=== PATIENT | female | born 1960 ===

== ENCOUNTER 2016-10-17 14:16 | Inpatient (IN) | payer MEDICARE, MEDICAID ==
[2016-10-17] MEDS ORDERED: Albuterol-Ipratrop 3 mg / 0.5 (3 ml) UD ONE ×2 (14:28→16:23)
[2016-10-17] MEDS ORDERED: Albuterol-Ipratrop 3 mg / 0.5 (3 ml) UD INH STA ×2 (14:29→15:57)
[2016-10-17] MEDS ORDERED: Albuterol 0.083% Inhal Sol (2.5 mg/3 mL) UD IH STA ×3 (15:57→18:01)
[2016-10-17] MEDS ORDERED: Albuterol 0.083% Inhal Sol (2.5 mg/3 mL) UD ONE ×2 (16:23→18:28)
[2016-10-17 16:25] LABS: BASO % 0.3 % (0.0-2.0); EOS # 0.1 K/uL (0.0-0.7); EOS % 0.6 % (0.0-4.0); HEMOGLOBIN 12.4 g/dL (11.0-16.0); LYMPH # 1.4 K/uL (1.0-4.3); LYMPH % 8.7 % (20.0-40.0); MEAN CORPUSCULAR HEMOGLOBIN 29.8 pg (27.0-31.0); MEAN CORPUSCULAR HGB CONC 32.8 g/dL (33.0-37.0); MEAN PLATELET VOLUME 6.8 fL (7.2-11.7); MONO # 0.6 K/uL (0.0-0.8); MONO % 3.9 % (0.0-10.0); NEUT # 13.6 K/uL (1.8-7.0); NEUT % 86.5 % (50.0-75.0); PLATELET COUNT 211 K/uL (130-400); RBC 4.16 Mil/uL (3.80-5.20); RED CELL DISTRIBUTION WIDTH 16.3 % (11.5-14.5); WHITE BLOOD COUNT 15.8 K/uL (4.8-10.8)
[2016-10-17 16:41] LABS: ALBUMIN 3.6 g/dL (3.5-5.0)
[2016-10-17 16:44] LABS: ALB/GLOB RATIO 1.2 (1.0-2.1); AST/SGOT 19 U/L (14-36); GFR AFRICAN-AMERICAN > 60; GFR NON-AFRICAN AMERICAN > 60
[2016-10-17 16:45] LABS: ALT/SGPT 37 U/L (9-52); BLOOD UREA NITROGEN 16 mg/dL (7-17); CALCIUM 8.6 mg/dl (8.6-10.4)
--- NOTE | 2016-10-17 16:57 | RAD ---
PROCEDURE: CHEST RADIOGRAPH, 1 VIEW HISTORY: SOB COMPARISON: TheNone available. FINDINGS: LUNGS: Patchy opacity seen in the right lower lobe which may represent lower lobe atelectasis and or infiltrate. Suspect minor left basilar atelectasis. The interstitial markings are also slightly increased; rule out concomitant sequela of reactive/inflammatory airway disease or viral illness. PLEURA: No pneumothorax or pleural fluid seen. CARDIOVASCULAR: Heart size is upper limits of normal. OSSEOUS STRUCTURES: No significant abnormalities. VISUALIZED UPPER ABDOMEN: Normal. OTHER FINDINGS: None. IMPRESSION: Right lower lobe atelectasis and or infiltrate. Suspect minor left basilar atelectasis.The interstitial markings are also slightly increased; rule out concomitant sequela of reactive/inflammatory airway disease or viral illness.
[2016-10-17] MEDS ORDERED: cefTRIAXone IV 1 gm in Dextros 50 ML IV STA (18:01)
[2016-10-17] MEDS ORDERED: Azithromycin 500 MG in Sodium Chloride 0.9% 250 ML IVPB STA (18:01)
--- NOTE | 2016-10-17 18:07 | C.PDOC ---
History Of Present Illness 56-year-old female presents to the emergency department with complaints of productive cough with yellow sputum, chills, shortness of breath, pleuritic chest pain, and wheezing x3 days. Two weeks ago, patient states she was diagnosed with pneumonia at another hospital (name of antibiotics unknown). Patient denies abdominal pain, nausea/vomiting/diarrhea. Time Seen by Provider: 10/17/16 15:05 Chief Complaint (Nursing): Shortness Of Breath History Per: Patient History/Exam Limitations: no limitations Onset/Duration Of Symptoms: Days Current Symptoms Are (Timing): Still Present Current Respiratory Medications: See Home Med List Severity: Mild Past Medical History Reviewed: Historical Data, Nursing Documentation, Vital Signs Vital Signs: Last Vital Signs Temp 98.0 F 10/19/16 08:10 Pulse 97 H 10/19/16 16:33 Resp 18 10/19/16 08:10 BP 160/72 H 10/19/16 09:12 Pulse Ox 96 10/19/16 16:33 - Medical History PMH: Anxiety, Bipolar Disorder, Pneumonia, Post Traumatic Stress Disorder Surgical History: Cholecystectomy Family History: States: No Known Family Hx - Social History Hx Alcohol Use: No Hx Substance Use: No - Immunization History Hx Tetanus Toxoid Vaccination: No Hx Influenza Vaccination: Yes (04/2016) Hx Pneumococcal Vaccination: Yes (04/2016) Review Of Systems Except As Marked, All Systems Reviewed And Found Negative. Constitutional: Negative for: Fever, Chills Cardiovascular: Positive for: Chest Pain Respiratory: Positive for: Cough, Shortness of Breath, Sputum Gastrointestinal: Negative for: Nausea, Vomiting Musculoskeletal: Negative for: Back Pain Skin: Negative for: Rash Physical Exam - Physical Exam Appears: Well, Non-toxic, No Acute Distress, Other (Speaking in full sentences) Skin: Warm, Dry, No Rash Eye(s): bilateral: Normal Inspection Oral Mucosa: Moist Cardiovascular: Rhythm Regular Respiratory: No Rales, No Rhonchi, Wheezing (B/L, expiratory) Gastrointestinal/Abdominal: Normal Exam, Bowel Sounds, Soft, No Tenderness Extremity: Normal ROM, No Pedal Edema Neurological/Psych: Oriented x3 ED Course And Treatment - Laboratory Results Result Diagrams: 10/19/16 06:37 10/19/16 06:37 ECG: Interpreted By Me, Viewed By Me (NSR 71 bpm, normal axis, no acute ST/T wave changes) O2 Sat by Pulse Oximetry: 96 (ra) Pulse Ox Interpretation: Normal - Radiology CXR: Interpreted by Me, Viewed By Me (right lower lobe infiltrate) Progress Note: Blood work, CXR, EKG, and UA ordered and reviewed. Patient given nebulizer treatments and IV solumedrol. CXR shows RLL infiltrate, IV rocephin and azithromycin for pneumonia. Patient will need admission for pneumonia, failure of prior antibiotics. Reevaluation Time: 17:50 Reassessment Condition: Improved (Patient reassessed, is still having mild expiratory wheezing B/L.) - Physician Consult Information Physician Contacted: Nancy Vee Outcome Of Conversation: Discussed patient with Dr. Vee, agrees with admission for asthma exacerbation, pneumonia, failure of outpatient/prior treatment. Critical Care Time - Critical Care Note Total Time (in mins): 40 Documented critical care: time excludes all time spent performing seperately billable procedures. Disposition - Disposition Disposition: HOSPITALIZED Disposition Time: 18:05 Condition: STABLE - Clinical Impression Clinical Impression: Asthma exacerbation, Failure of outpatient treatment, Pneumonia, Dyspnea - Scribe Statement The provider has reviewed the documentation as recorded by the Scribe (Katheryn Spain) All medical record entries made by the Scribe were at my direction and personally dictated by me. I have reviewed the chart and agree that the record accurately reflects my personal performance of the history, physical exam, medical decision making, and the department course for this patient. I have also personally directed, reviewed, and agree with the discharge instructions and disposition. Decision To Admit - Pt Status Changed To: Hospital Disposition Of: Inpatient - Admit Certification Admit to Inpatient:: After my assessment, the patient will require hospitalization for at least two midnights. This is because of the severity of symptoms shown, intensity of services needed, and/or the medical risk in this patient being treated as an outpatient. - InPatient: Physician Admission Certification: I certify that this patient requires 2 or more midnights of care for the following reason:: see notes - . Bed Request Type: Telemetry Admitting Physician: Nancy Vee Patient Diagnosis: Asthma exacerbation, Pneumonia, Dyspnea, Failure of outpatient treatment
[2016-10-17 18:17] LABS: B-TYPE NATRIURETIC PEPTIDE 127 pg/mL (0-900); CK-MB 0.66 ng/mL (0.0-3.38)
[2016-10-17 18:31] LABS: BANDS 4 % (0-2); HYPOCHROMIC SLIGHT; LYMPHOCYTE 6 % (20-40); MICROCYTOSIS SLIGHT; MONOCYTE 6 % (0-10); NEUTROPHIL 84 % (50-75); PLATELET ESTIMATE NORMAL (NORMAL); TOTAL CELLS COUNTED 100
[2016-10-17 18:32] LABS: LARGE PLATELETS PRESENT; OVALOCYTES SLIGHT; SCHISTOCYTES SLIGHT
[2016-10-17] MEDS ORDERED: cefTRIAXone IV 1 gm in Dextros 50 ML IVPB ONE (18:44)
[2016-10-17] MEDS ORDERED: Oxycodone/Acetaminophen 5/325 mg Tab PO PRN (22:04)
[2016-10-17] MEDS: Albuterol 0.083% Inhal Sol (2.5 mg/3 mL) UD IH SCH (22:30)
[2016-10-18] MEDS: Albuterol 0.083% Inhal Sol (2.5 mg/3 mL) UD IH SCH ×9 (00:10→19:35)
[2016-10-18] MEDS: MethylPREDNISolone 40 mg Vial IVP SCH ×5 (00:14→23:41)
--- NOTE | 2016-10-18 07:17 | CP.PCM.PN ---
Subjective - Date & Time of Evaluation Date of Evaluation: 10/18/16 Time of Evaluation: 10:49 - Subjective Subjective: PGY 2 Medicine Note- Dr. Hawley's service CC: productive cough with yellow sputum HPI: In brief, patient is a 56 year old female who presented with productive cough for approx 3 days duration. Patient was treated for pneumonia two weeks prior at another facility but states that her symptoms did not completely resolve. Patient admits to wheezing, and pleuritic chest pain associated with coughs as well. Patient was using nebulizers and did not comply with all questions at the time of initial assessment. Driller'S Offsider attempted a second time, and patient still was unable to answer questions asked. This is therefore a limited summary of patient's history of present illness. PMHx- HTN, DM, COPD, PTSD, PSHx- Cholecystectomy Fam Hx- Patient did not answer at this time. Meds- Patient did not answer at this time. Social Hx- has smoked daily for 42 years ( patient quit yesterday); Did not answer whether she drinks or uses illicit agents. Allergies- denies Objective - Vital Signs/Intake and Output Vital Signs (last 24 hours): Temp Pulse Resp BP Pulse Ox 98.4 F 85 20 137/67 95 10/17/16 23:30 10/18/16 01:00 10/17/16 23:30 10/17/16 23:30 10/17/16 23:30 Intake and Output: 10/18/16 10/18/16 06:59 18:59 Intake Total 734 Balance 734 - Medications Medications: Current Medications Albuterol Sulfate (Albuterol 0.083% Inhal Adriane (2.5 Mg/3 Ml) Ud) 2.5 mg IH Q2 [facility] Last Admin: 10/18/16 06:03 Dose: 2.5 mg Alprazolam (Xanax) 0.5 mg PO HS [facility] Last Admin: 10/17/16 22:31 Dose: 0.5 mg Alprazolam (Xanax) 1 mg PO DAILY [facility] Home Med (Risperdal) 10 mg PO BID [facility] Ceftriaxone Sodium 1 gm/ (Sodium Chloride) 100 mls @ 100 mls/hr IVPB DAILY [facility] Azithromycin 500 mg/ Sodium (Chloride) 250 mls @ 250 mls/hr IVPB DAILY [facility] Loratadine (Claritin) 10 mg PO HS [facility] Last Admin: 10/17/16 22:31 Dose: 10 mg Methylprednisolone (Solu-Medrol) 40 mg IVP Q6H [facility] Last Admin: 10/18/16 05:12 Dose: 40 mg Oxycodone/Acetaminophen (Percocet 5/325 Mg Tab) 1 tab PO Q6H PRN PRN Reason: Pain, severe (8-10) Stop: 10/20/16 22:05 Pregabalin (Lyrica) 75 mg PO BID [facility] Sertraline HCl (Zoloft) 100 mg PO DAILY [facility] Zolpidem Tartrate (Ambien) 5 mg PO [facility] Last Admin: 10/17/16 22:31 Dose: 5 mg - Constitutional Appears: Non-toxic, No Acute Distress - Head Exam Head Exam: ATRAUMATIC, NORMAL INSPECTION - Eye Exam Eye Exam: EOMI, Normal appearance, PERRL Pupil Exam: NORMAL ACCOMODATION, PERRL - ENT Exam ENT Exam: Mucous Membranes Moist - Neck Exam Neck Exam: Full ROM - Respiratory Exam Respiratory Exam: Decreased Breath Sounds, Rales, Wheezes. absent: Stridor - Cardiovascular Exam Cardiovascular Exam: REGULAR RHYTHM, +S1, +S2 - GI/Abdominal Exam GI & Abdominal Exam: Soft, Normal Bowel Sounds - Extremities Exam Extremities Exam: Full ROM, Normal Capillary Refill - Neurological Exam Neurological Exam: Awake, Oriented x3 - Psychiatric Exam Psychiatric exam: Flat Affect, Normal Affect, Normal Mood - Skin Skin Exam: Dry, Warm Assessment and Plan (1) Pulmonary consolidation due to pneumococcal pneumonia Assessment & Plan: Azithromycin, Ceftriaxone Initial CXR- patchy opacities in RLL; reactive vs inflammatory disease; refer to complete report. F/U Chest CT results F/U Legionella, mycoplasma Status: Acute (2) COPD (chronic obstructive pulmonary disease) Assessment & Plan: Duonebs, Spiriva, advair Status: Chronic (3) Hypertension Assessment & Plan: Will need to confirm home meds when patient is willing to answer questions. Will start Zestril 5 mg PO daily Status: Chronic (4) Diabetes mellitus Assessment & Plan: ISS- Monitor Accuchecks Check Hgb A1c Status: Chronic (5) Anxiety Assessment & Plan: Xanax on board Status: Acute (6) Tobacco use disorder Assessment & Plan: Nicotine patch Smoking cessation counseling Status: Chronic (7) Prophylactic measure Assessment & Plan: SCDs GI prophylaxis not indicated at this time. Status: Acute - Assessment and Plan (Free Text) Assessment: All management and orders per Dr. Hawley
[2016-10-18] MEDS ORDERED: RISPERIDONE PO SCH (10:00)
[2016-10-18] MEDS: Azithromycin 500 MG in Sodium Chloride 0.9% 250 ML IVPB SCH (11:29)
[2016-10-18 14:03] LABS: BASO % 0.1 % (0.0-2.0); HEMOGLOBIN 12.2 g/dL (11.0-16.0); LYMPH # 0.6 K/uL (1.0-4.3); LYMPH % 6.2 % (20.0-40.0); MEAN CELL VOLUME 92.2 fL (81.0-99.0); MEAN CORPUSCULAR HGB CONC 32.5 g/dL (33.0-37.0); MEAN PLATELET VOLUME 7.4 fL (7.2-11.7); MONO # 0.3 K/uL (0.0-0.8); MONO % 3.3 % (0.0-10.0); NEUT # 9.3 K/uL (1.8-7.0); NEUT % 90.4 % (50.0-75.0); PLATELET COUNT 201 K/uL (130-400); RBC 4.06 Mil/uL (3.80-5.20); RED CELL DISTRIBUTION WIDTH 16.3 % (11.5-14.5); WHITE BLOOD COUNT 10.3 K/uL (4.8-10.8)
[2016-10-18 14:09] LABS: ALBUMIN 3.4 g/dL (3.5-5.0)
[2016-10-18 14:12] LABS: ALB/GLOB RATIO 1.1 (1.0-2.1); AST/SGOT 16 U/L (14-36); BLOOD UREA NITROGEN 19 mg/dL (7-17); GFR AFRICAN-AMERICAN > 60; GFR NON-AFRICAN AMERICAN > 60
[2016-10-18 14:13] LABS: ALT/SGPT 29 U/L (9-52); CALCIUM 8.7 mg/dl (8.6-10.4); MAGNESIUM 1.8 mg/dL (1.6-2.3)
[2016-10-18 14:41] LABS: LYMPHOCYTE 3 % (20-40); MONOCYTE 1 % (0-10); NEUTROPHIL 96 % (50-75); PLATELET ESTIMATE NORMAL (NORMAL); TOTAL CELLS COUNTED 100
--- NOTE | 2016-10-18 16:28 | CT ---
PROCEDURE: CT Chest without contrast HISTORY: pneumonia COMPARISON: Chest radiograph dated 10/18/2011. TECHNIQUE: Contiguous axial images were obtained through the chest without intravenous contrast enhancement. Sagittal and coronal reconstructions were performed. Radiation dose (DLP): 358 mGy-cm. This CT exam was performed using one or more of the following dose reduction techniques: Automated exposure control, adjustment of the mA and/or kV according to patient size, and/or use of iterative reconstruction technique. FINDINGS: LUNGS: This alveolar infiltrate pneumothorax or central air rate lesion appreciated throughout the exam. Limited ground-glass opacity is identified at the right upper lobe and right middle lobe and possibly the right lower lobe near the base with left lower lobe minimally affected. The findings may reflect limited interstitial pulmonary disease with no definite alveolitis appreciated this time. Is difficult excluded tiny faint nodule at the right apex image 21 series 3 measuring 4 mm. No associated calcification is appreciated. No additional parenchymal nodular densities identified bilaterally. MEDIASTINUM: A minimally atherosclerotic thoracic aorta is identified. No aneurysm. Normal sized heart. Main pulmonary artery unremarkable. No vascular congestion. No lymphadenopathy. PLEURA: No pleural fluid. No pneumothorax. BONES: Limited multilevel thoracic spondylosis encountered. UPPER ABDOMEN: Grossly unremarkable. OTHER FINDINGS: None. IMPRESSION: 1. Limited multifocal ground-glass opacity at the bilateral lower lobes, right middle and upper lobes may indicate an element interstitial pulmonary disease. No alveolitis pleural or pericardial effusion or significant lymphadenopathy. 2. 4 mm nodule is questioned at the right pulmonary apex as discussed above for which follow-up chest is advised in 12 months to demonstrate stability or a resolution of this finding.
[2016-10-18] MEDS: (Novolog) Insulin Aspart, Recombinant 100 u/ml 10 ml vial SC SCH ×2 (17:21→21:45)
[2016-10-18] MEDS: Fluticasone-Salmeterol 250-50mcg Diskus INH SCH (19:35)
[2016-10-19] MEDS: Albuterol 0.083% Inhal Sol (2.5 mg/3 mL) UD IH SCH ×8 (00:33→13:15)
[2016-10-19] MEDS: MethylPREDNISolone 40 mg Vial IVP SCH ×2 (05:49→12:03)
[2016-10-19 06:59] LABS: BASO % 0.1 % (0.0-2.0); HEMOGLOBIN 12.6 g/dL (11.0-16.0); LYMPH # 2.2 K/uL (1.0-4.3); LYMPH % 15.8 % (20.0-40.0); MEAN CELL VOLUME 91.5 fL (81.0-99.0); MEAN CORPUSCULAR HEMOGLOBIN 29.7 pg (27.0-31.0); MEAN CORPUSCULAR HGB CONC 32.5 g/dL (33.0-37.0); MEAN PLATELET VOLUME 7.1 fL (7.2-11.7); MONO # 0.9 K/uL (0.0-0.8); MONO % 6.3 % (0.0-10.0); NEUT # 10.9 K/uL (1.8-7.0); NEUT % 77.8 % (50.0-75.0); RBC 4.24 Mil/uL (3.80-5.20); RED CELL DISTRIBUTION WIDTH 16.3 % (11.5-14.5)
[2016-10-19 07:06] LABS: ALBUMIN 3.5 g/dL (3.5-5.0)
[2016-10-19 07:09] LABS: ALB/GLOB RATIO 1.2 (1.0-2.1); AST/SGOT 15 U/L (14-36); BLOOD UREA NITROGEN 17 mg/dL (7-17); GFR AFRICAN-AMERICAN > 60; GFR NON-AFRICAN AMERICAN > 60
[2016-10-19 07:10] LABS: ALT/SGPT 31 U/L (9-52); CALCIUM 9.1 mg/dl (8.6-10.4); MAGNESIUM 1.9 mg/dL (1.6-2.3)
[2016-10-19] MEDS ORDERED: Tiotropium 18 mcg Cap For Inhalation INH SCH (08:00)
[2016-10-19] MEDS ORDERED: Acetaminophen-Codeine 300/30 mg Tab PO PRN (08:03)
[2016-10-19] MEDS: Fluticasone-Salmeterol 250-50mcg Diskus INH SCH (08:13)
[2016-10-19 08:18] VITALS: RESP 18; TEMP 98
[2016-10-19] MEDS: (Novolog) Insulin Aspart, Recombinant 100 u/ml 10 ml vial SC SCH ×2 (08:27→12:02)
[2016-10-19 09:12] VITALS: BP 160/72
--- NOTE | 2016-10-19 09:37 | CP.PCM.PN ---
Subjective - Date & Time of Evaluation Date of Evaluation: 10/19/16 Time of Evaluation: 07:30 - Subjective Subjective: PGY3 Medicine Note - Dr. Hawley's service: Patient seen and examined at bedside this AM. Patient reports reproducible left sided chest pain radiating to right shoulder worse with deep breaths and cough. This pain started 4 days ago per patient. Patient reports cough productive of yellow phlegm. Patient denies fever, chills, nausea, vomiting, diarrhea, constipation. Patient reports she is ready to quit smoking and will do it. Objective - Vital Signs/Intake and Output Vital Signs (last 24 hours): Temp Pulse Resp BP Pulse Ox 98.0 F 81 18 160/72 H 100 10/19/16 08:10 10/19/16 08:10 10/19/16 08:10 10/19/16 09:12 10/19/16 08:10 - Medications Medications: Current Medications Acetaminophen/Codeine Phosphate (Tylenol/Codeine 300 Mg/30 Mg) 1 ea PO Q4 PRN PRN Reason: Pain, moderate (4-7) Albuterol Sulfate (Albuterol 0.083% Inhal Adriane (2.5 Mg/3 Ml) Ud) 2.5 mg IH RQ2 [facility] Last Admin: 10/19/16 07:27 Dose: 2.5 mg Alprazolam (Xanax) 0.5 mg PO HS [facility] Last Admin: 10/18/16 21:02 Dose: 0.5 mg Alprazolam (Xanax) 1 mg PO DAILY [facility] Last Admin: 10/18/16 10:00 Dose: 1 mg Ceftriaxone Sodium 1 gm/ (Sodium Chloride) 100 mls @ 100 mls/hr IVPB DAILY [facility] Last Admin: 10/19/16 09:13 Dose: 100 mls/hr Azithromycin 500 mg/ Sodium (Chloride) 250 mls @ 250 mls/hr IVPB DAILY [facility] Last Admin: 10/18/16 11:29 Dose: 250 mls/hr Insulin Aspart (Novolog) 0 unit SC ACHS [facility] PRN Reason: Protocol Last Admin: 10/19/16 08:27 Dose: 4 unit Lisinopril (Zestril) 5 mg PO DAILY [facility] Last Admin: 10/19/16 09:21 Dose: 5 mg Loratadine (Claritin) 10 mg PO HS [facility] Last Admin: 10/18/16 21:02 Dose: 10 mg Methylprednisolone (Solu-Medrol) 40 mg IVP Q6H [facility] Last Admin: 10/19/16 05:49 Dose: 40 mg Nicotine (Nicoderm Cq) 1 patch TD DAILY [facility] Last Admin: 10/18/16 20:52 Dose: 1 patch Oxycodone/Acetaminophen (Percocet 5/325 Mg Tab) 1 tab PO Q6H PRN PRN Reason: Pain, severe (8-10) Stop: 10/20/16 22:05 Last Admin: 10/19/16 08:30 Dose: 1 tab Pregabalin (Lyrica) 75 mg PO BID [facility] Last Admin: 10/18/16 17:20 Dose: 75 mg Fluticasone/Salmeterol (Advair Diskus 250/50) 1 puff INH RQ12 [facility] Last Admin: 10/19/16 08:13 Dose: 1 puff Sertraline HCl (Zoloft) 100 mg PO DAILY [facility] Last Admin: 10/18/16 10:01 Dose: 100 mg Tiotropium [place] (Spiriva) 18 mcg INH RQ24 [facility] Last Admin: 10/19/16 08:13 Dose: 18 mcg Zolpidem Tartrate (Ambien) 5 mg PO HS [facility] Last Admin: 10/18/16 21:02 Dose: 5 mg - Labs Labs: 10/19/16 06:37 10/19/16 06:37 - Constitutional Appears: Non-toxic, No Acute Distress - Head Exam Head Exam: NORMAL INSPECTION - Eye Exam Eye Exam: EOMI - ENT Exam ENT Exam: Mucous Membranes Moist - Respiratory Exam Respiratory Exam: Decreased Breath Sounds, Rhonchi. absent: NORMAL BREATHING PATTERN - Cardiovascular Exam Cardiovascular Exam: REGULAR RHYTHM, +S1, +S2. absent: Gallop, Rubs, Murmur - GI/Abdominal Exam GI & Abdominal Exam: Soft, Normal Bowel Sounds. absent: Tenderness - Extremities Exam Extremities Exam: absent: Pedal Edema - Neurological Exam Neurological Exam: Alert, Awake, Oriented x3 - Psychiatric Exam Psychiatric exam: Normal Affect, Normal Mood - Skin Skin Exam: Normal Color, Warm Assessment and Plan - Assessment and Plan (Free Text) Assessment: (1) Pulmonary consolidation due to pneumococcal pneumonia Assessment & Plan: Azithromycin, Ceftriaxone in hospital D/C with Z pack Initial CXR- patchy opacities in RLL; reactive vs inflammatory disease; refer to complete report. Chest CT - multifocal ground glass opacity at b/l lower lobes, right middle and upper lobes. Possibly interstitial pulmonary disease. 4mm nodule in right apex. F/U Chest CT in 12 months. Mycoplasma negative F/U Legionella outpatient Status: Acute (2) COPD (chronic obstructive pulmonary disease) Assessment & Plan: Duonebs, Spiriva, advair, solumedrol in hospital Takes Breo at home D/C with Spiriva and Prednisone script. Status: Chronic (3) Hypertension Assessment & Plan: 10/18: Will need to confirm home meds when patient is willing to answer questions. Will start Zestril 5 mg PO daily 10/19: Patient does not know of HTN med D/C with script for Zestril Status: Chronic (4) Diabetes mellitus Assessment & Plan: ISS- Monitor Accuchecks HgbA1C 7.2 Continue home med Status: Chronic (5) Anxiety Assessment & Plan: Xanax on board Status: Acute (6) Tobacco use disorder Assessment & Plan: Nicotine patch - script given on D/C Smoking cessation counseling Status: Chronic (7) Prophylactic measure Assessment & Plan: SCDs GI prophylaxis not indicated at this time. Status: Acute Discharge home with plan to follow up in [address] Hawley Patient to be discharged home per Dr. Hawley. Patient counselled to quit smoking. Patient should continue all home medications including but not limited to Breo inhaler. Patient should take all new medications as directed below. Patient should make an appointment and follow up with Dr. Hawley within one week. Patient should return to ED immediately if symptoms return or worsen. Patient must get a CT scan in 12 months or 1 year to follow up a 4mm nodule seen in the right apex of her lung. New medications: Spiriva 18mcg inhale once a day #1 inhaler #30 caps Prednisone 10mg by mouth daily #14 Z pack - take as directed on packaging #1 pack Tylenol #3 (with codeine) by mouth every 4 hours as needed for pain #10 Zestril 5mg by mouth daily #30 Nicotine 14mg/24hr transdermal patch daily #14
[2016-10-19] MEDS: Azithromycin 500 MG in Sodium Chloride 0.9% 250 ML IVPB SCH (10:40)
--- NOTE | 2016-10-19 12:24 | PCM.PSYCH ---
Initial Psychiatric Evaluation - Initial Psychiatric Evaluation Type of Admission: Voluntary Legal Status: Capacity Chief Complaint (in patient's own words): 'I am having a panic attack' History of Present Illness and Precipitating Events: Patient is a 56-year-old female who was brought to the ER for shortness of breath, chills, and fever. We were consulted because she was feeling that she had a panic attack. Patient is a poor historian. She states that she cannot sleep. She is paranoid and states that people are following her, and that everyone is not doing right things. She states that she has always been an angry person and has a history of 5-6 psychiatric hospitalizations for trying to kill people. She denies any hallucinations. She reports irritable mood but denies any suicidal ideations, homicidal ideations, and any previous suicide attempts. She states that she last saw a psychiatrist in [place], [place] 5 days ago. She reports having a history of PTSD, and mood swings. Current Medications: Active Medications Generic Name Dose Route Start Last Admin Trade Name Freq PRN Reason Stop Dose Admin Acetaminophen/Codeine Phosphate 1 ea 10/19/16 08:03 Tylenol/Codeine 300 Mg/30 Mg PO Q4 PRN Pain, moderate (4-7) Albuterol Sulfate 2.5 mg 10/18/16 18:00 10/19/16 10:13 Albuterol 0.083% Inhal Adriane (2.5 Mg/3 Ml) Ud IH 2.5 mg RQ2 [facility] Administration Alprazolam 0.5 mg 10/17/16 22:15 10/18/16 21:02 Xanax PO 0.5 mg HS [facility] Administration Alprazolam 1 mg 10/18/16 10:00 10/19/16 09:39 Xanax PO 1 mg DAILY [facility] Administration Ceftriaxone Sodium 1 gm/ 100 mls @ 100 mls/hr 10/18/16 10:00 10/19/16 09:13 Sodium Chloride IVPB 100 mls/hr DAILY [facility] Administration Azithromycin 500 mg/ Sodium 250 mls @ 250 mls/hr 10/18/16 10:00 10/19/16 10: 40 Chloride IVPB 250 mls/hr DAILY [facility] Administration Insulin Aspart 0 unit 10/18/16 16:30 10/19/16 12:02 Novolog SC 8 unit ACHS [facility] Administration Protocol Lisinopril 5 mg 10/19/16 10:00 10/19/16 09:21 Zestril PO 5 mg DAILY [facility] Administration Loratadine 10 mg 10/17/16 22:15 10/18/16 21:02 Claritin PO 10 mg HS [facility] Administration Methylprednisolone 40 mg 10/18/16 00:00 10/19/16 12:03 Solu-Medrol IVP 40 mg Q6H [facility] Administration Nicotine 1 patch 10/18/16 16:30 10/19/16 09:40 Nicoderm Cq TD 1 patch DAILY [facility] Administration Oxycodone/Acetaminophen 1 tab 10/17/16 22:04 10/19/16 08:30 Percocet 5/325 Mg Tab PO 10/20/16 22:05 1 tab Q6H PRN Administration Pain, severe (8-10) Pregabalin 75 mg 10/18/16 10:00 10/19/16 09:39 Lyrica PO 75 mg BID [facility] Administration Fluticasone/Salmeterol 1 puff 10/18/16 20:00 10/19/16 08:13 Advair Diskus 250/50 INH 1 puff RQ12 [facility] Administration Sertraline HCl 100 mg 10/18/16 10:00 10/19/16 09:39 Zoloft PO 100 mg DAILY [facility] Administration Tiotropium [place] 18 mcg 10/19/16 08:00 10/19/16 08:13 Spiriva INH 18 mcg RQ24 [facility] Administration Zolpidem Tartrate 5 mg 10/17/16 22:11 10/18/16 21:02 Ambien PO 5 mg HS [facility] Administration Past Psychiatric History - Past Psychiatric History Previous Treatment History: Inpatient Pertinent Medical Hx (Current Medical&Sleep Prob, Allergies): Allergies Allergy/AdvReac Type Severity Reaction Status Date / Time No Known Allergies Allergy Verified 10/17/16 14:24 Alprazolam [Xanax] 0.5 mg PO HS 10/17/16 Ambien 10 mg PO HS 10/17/16 Cetirizine HCl 10 mg PO HS 10/17/16 Ibuprofen 200 mg PO TID PRN 10/17/16 Pregabalin [Lyrica] 75 mg PO BID 10/17/16 Risperdal 10 mg PO BID 10/17/16 Sertraline [Zoloft] 100 mg PO DAILY 10/17/16 Xanax 1 mg PO DAILY 10/17/16 Acetaminophen/Codeine [Tylenol/Codeine 300 MG/30 MG] 1 ea PO Q4 PRN #10 tab Azithromycin [Z-Johan] 250 mg PO DAILY #6 tab 10/19/16 Lisinopril [Zestril] 5 mg PO DAILY #30 tab 10/19/16 Nicotine 14 mg/24 hr [Nicoderm CQ] 1 patch TD DAILY #14 patch 10/19/16 Prednisone [Nadege] 10 mg PO DAILY 14 Days 10/19/16 Tiotropium [place] Inhaler [Spiriva Inhalation Handihaler Device] 1 inhaler INH ONCE #1 inhaler 10/19/16 Tiotropium [Spiriva] 18 mcg INH RQ24 #30 cap 10/19/16 Review of Systems - Review of Systems All systems: reviewed and no additional remarkable complaints except - Psychiatric Psychiatric: Anxiety, Irritability, Paranoia Mental Status Examination - Personal Presentation Personal Presentation: Looks stated age - Affect Affect: Constricted - Motor Activity Motor Activity: Calm - Reliability in Providing Information Reliability in Providing Information: Good - Speech Speech: Organized - Mood Mood: Depressed, Anxious - Formal Thought Process Formal Thought Process: Hallucinations, Delusions, Paranoia - Obsessions/Compulsions Obsessions: No Compulsions: No - Cognitive Functions Orientation: Person, Place Sensorium: Alert Attention/Concentration: Attentive Abstract Thinking: [place] Estimate of Intelligence: Below average Judgement: Imparied, as evidence by: Poor judgement, Intact, as evidence by: Insight regarding need for hospitalization - Risk Risk: Diminished functioning DSM 5 DX - DSM 5 DSM 5 Diagnosis: Bipolar disorder mixed with psychotic features - Recommended/Plan of Treatment Treatment Recommendations and Plan of Treatment: Bipolar disorder mixed with psychotic features CBT Psychoeducation Supportive therapy, group therapy, individual therapy Continue Zoloft 100 mg by mouth daily Pregabalin 75 mg by mouth 2 times a day Continue Valium 5 mg by mouth daily at bedtime Start Risperdal 1 mg PO QHS - Smoking Cessation Smoking Cessation Initiated: No
--- NOTE | 2016-10-19 16:09 | CARD ---
APPROVED REPORT EKG Measurement Heart [id number] <Conclusion> Normal sinus rhythm Poor R wave progression. It appears positional. Borderline EKG
[2016-10-19 16:58] VITALS: PULSE 97; O2SAT 96
== END 2016-10-19 14:58 | disposition home or self-care (01) | DRG 190 ==
LOC: C.ER 14:16 → C.9E 18:05 → C.6T 18:32
PROVIDERS: ADMIT Internal Medicine Pulmonary Disease; ATTEND Internal Medicine Pulmonary Disease
DX: J44.0 Chronic obstructive pulmonary disease with (acute) lower respiratory infection (principal); J13 Pneumonia due to Streptococcus pneumoniae; F31.60 Bipolar disorder, current episode mixed, unspecified; I10 Essential (primary) hypertension; E11.9 Type 2 diabetes mellitus without complications; F17.210 Nicotine dependence, cigarettes, uncomplicated; F41.9 Anxiety disorder, unspecified